=== PATIENT | female | born 1960 | race Caucasian/White ===

== ENCOUNTER 2021-05-15 17:09 | Emergency (ER) | payer OTHER ==
--- NOTE | 2021-05-15 17:12 | ERPHSYRPT ---
- History of Present Illness Time Seen by Provider: 05/15/21 17:11 Source: patient Exam Limitations: no limitations Physician History: This is an obese 60-year-old white female with a history of hypertension on 3 different medications for hypertension who presents with 4 to 5-day history of brief right eye visual change with ruptured blood vessel on the lateral aspect of her right eye. She took her medication today but was found to have an elevated systolic blood pressure of over 200 while at work. Patient works here at the hospital and they sent her to the emergency department for evaluation and management. Patient denies headache. She has no visual changes at this time. She has no chest pain. She is not short of breath. She has had no vomiting or nausea. Timing/Duration: day(s) (5) Severity: moderate Modifying Factors: Improves With: nothing Associated Symptoms: denies symptoms Allergies/Adverse Reactions: No Known Drug Allergies Allergy (Verified 05/15/21 17:21) Home Medications: No Home Meds 12/17/12 [History] Lisinopril 10 mg [Zestril 10 MG] 10 mg PO DAILY 05/15/21 [History] Losartan Potassium [Cozaar] 50 mg PO DAILY 05/15/21 [History] Metoprolol Tartrate 50 mg PO DAILY 05/15/21 [History] Hx Tetanus, Diphtheria Vaccination/Date Given: No Hx Influenza Vaccination/Date Given: No Travel Risk - International Travel Have you traveled outside of the country in past 3 weeks: No - Coronavirus Screening Are you exhibiting any of the following symptoms?: No Close contact with a COVID-19 positive Pt in past 14-21 Days: No - Review of Systems Constitutional: No Symptoms Eyes: Vision Changes (Brief on the weekend), Other (Ruptured vessel right thigh lateral aspect) Ears, Nose, & Throat: No Symptoms Respiratory: No Symptoms Cardiac: No Symptoms Abdominal/Gastrointestinal: No Symptoms Genitourinary Symptoms: No Symptoms Musculoskeletal: No Symptoms Skin: No Symptoms Neurological: No Symptoms Psychological: No Symptoms Endocrine: No Symptoms Hematologic/Lymphatic: No Symptoms Immunological/Allergic: No Symptoms All Other Systems: Reviewed and Negative - Past Medical History Pertinent Past Medical History: No - Past Surgical History Past Surgical History: Yes Gastrointestinal: Cholecystectomy - Social History Smoking Status: Never smoker Exposure to second hand smoke: No Drug Use: none 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) - Nursing Vital Signs Nursing Vital Signs: Initial Vital Signs Temperature 97.8 F 05/15/21 17:15 Pulse Rate 88 05/15/21 17:15 Respiratory Rate 20 05/15/21 17:15 Blood Pressure 218/99 05/15/21 17:15 O2 Sat by Pulse Oximetry 98 05/15/21 17:15 Pain Scale Pain Intensity 0 - Physical Exam General Appearance: no apparent distress, alert, anxiety, obese Eye Exam: PERRL/EOMI, other (Ruptured blood vessel lateral aspect right) Ears, Nose, Throat Exam: normal ENT inspection, moist mucous membranes Neck Exam: normal inspection, non-tender, supple, full range of motion Respiratory Exam: normal breath sounds, lungs clear, airway intact, No chest tenderness, No respiratory distress Cardiovascular Exam: regular rate/rhythm, normal heart sounds, normal peripheral pulses Gastrointestinal/Abdomen Exam: soft, normal bowel sounds, No tenderness Pelvic Exam: not done Rectal Exam: not done Back Exam: normal inspection, normal range of motion, No CVA tenderness, No vertebral tenderness Extremity Exam: normal inspection, normal range of motion, pelvis stable Neurologic Exam: alert, oriented x 3, cooperative, enrolled nurse II-XII nml as tested, normal mood/affect ( ruptured blood vessel lateral aspect right), nml cerebellar function, nml station & gait, sensation nml ( eye) Skin Exam: normal color, warm, dry Lymphatic Exam: No adenopathy SpO2 Interpretation: normal O2 Delivery: Room Air - Course Nursing assessment & vital signs reviewed: Yes Ordered Tests: Active Orders 24 hr Category Date Time Status Soft Drink Powder Mixer STAT Care 05/15/21 17:34 Active IV Insertion STAT Care 05/15/21 17:33 Active Pulse Oximetry (ED) STAT Care 05/15/21 17:33 Active HEAD WITHOUT CONTRAST [CT] Stat Exams 05/15/21 17:35 Taken CBC W DIFF Stat Lab 05/15/21 17:54 Completed CMP Stat Lab 05/15/21 17:54 Completed Medication Summary Discontinued Medications Generic Name Dose Route Start Last Admin Trade Name Freq PRN Reason Stop Dose Admin Enalaprilat 1.25 mg 05/15/21 17:33 05/15/21 17:43 Enalaprilat 2.5 Mg Injection IV 05/15/21 17:34 1.25 mg STAT ONE Administration Enalaprilat Confirm 05/15/21 17:42 Enalaprilat 2.5 Mg Injection Administered 05/15/21 17:43 Dose 2.5 mg IV .STK-MED ONE Metoprolol Tartrate 5 mg 05/15/21 17:33 05/15/21 17:43 Metoprolol Tartrate 5 Mg/5 Ml Injection IV 05/15/21 17:34 5 mg STAT ONE Administration Metoprolol Tartrate Confirm 05/15/21 17:42 Metoprolol Tartrate 5 Mg/5 Ml Injection Administered 05/15/21 17:43 Dose 5 mg IV .STK-MED ONE Lab/Rad Data: Laboratory Result Diagrams 05/15/21 17:54 05/15/21 17:54 Laboratory Results 05/15/21 05/15/21 Range/Units 17:54 17:54 WBC 8.1 (4.0-10.5) K/mm3 RBC 4.19 (4.1-5.4) M/mm3 Hgb 12.9 (12.0-16.0) gm/dl Hct 39.7 (35-47) % MCV 94.7 (78-100) fl MCH 30.8 (26-32) pg MCHC 32.5 (32-36) g/dl RDW 12.9 (11.5-14.0) % Plt Count 270 (150-450) K/mm3 MPV 10.0 (7.5-11.0) fl Gran % 62.2 (36.0-66.0) % Eos # (Auto) 0.16 (0-0.5) Absolute Lymphs (auto) 2.27 (1.0-4.6) Absolute Monos (auto) 0.58 (0.0-1.3) Lymphocytes % 28.2 (24.0-44.0) % Monocytes % 7.2 (0.0-12.0) % Eosinophils % 2.0 (0.00-5.0) % Basophils % 0.4 (0.0-0.4) % Absolute Granulocytes 5.01 (1.4-6.9) Basophils # 0.03 (0-0.4) Sodium 138 (137-145) mmol/L Potassium 3.8 (3.5-5.1) mmol/L Chloride 101 (98-107) mmol/L Carbon Dioxide 30 (22-30) mmol/L Anion Gap 10.6 (5-15) MEQ/L BUN 14 (7-17) mg/dL Creatinine 0.94 (0.52-1.04) mg/dL Estimated GFR > 60.0 ML/MIN Glucose 91 (74-106) mg/dL Calcium 9.5 (8.4-10.2) mg/dL Total Bilirubin 0.50 (0.2-1.3) mg/dL AST 30 (14-36) U/L ALT 18 (0-35) U/L Alkaline Phosphatase 108 (38-126) U/L Serum Total Protein 7.3 (6.3-8.2) g/dL Albumin 4.2 (3.5-5.0) g/dL - Progress Progress: improved, re-examined Progress Note: 05/15/21 18:39 CAT scan of the head without contrast is negative for acute intracranial abnormality. Counseled pt/family regarding: lab results, diagnosis, need for follow-up, rad results - Departure Departure Disposition: Home Clinical Impression: Hypertension Condition: Stable Critical Care Time: No [facility] - Additional Instructions: Take your blood pressure medication as prescribed. A 3 times a day, daily log of your blood pressure as discussed. Call your prescribing physician tomorrow morning, 05/16/2021, to make arrange for follow-up and further management of your high blood pressure as well as a referral to an felt strip finisher for further management.
[2021-05-15 17:21] VITALS: O2SAT 98
[2021-05-15] MEDS ORDERED: VASOTEC I.V. 2.5 MG IV ONE ×2 (17:33→17:42)
[2021-05-15] MEDS ORDERED: LOPRESSOR 5 MG/5 ML INJECTION IV ONE ×2 (17:33→17:42)
[2021-05-15 18:00] LABS: Absolute Neutrophil Ct (ANC) 5.01 (1.4-6.9); BASOPHIL % 0.4 % (0.0-0.4); Basophil (Absolute #) 0.03 (0-0.4); Eosinophil (Absolute #) 0.16 (0-0.5); Hematocrit 39.7 % (35-47); Hemoglobin 12.9 gm/dl (12.0-16.0); Lymphocyte (Absolute #) 2.27 (1.0-4.6); Lymphocytes % 28.2 % (24.0-44.0); Mean Cell Volume 94.7 fl (78-100); Mean Corpuscular Hemoglobin 30.8 pg (26-32); Mean Corpuscular Hgb Concent. 32.5 g/dl (32-36); Monocyte (Absolute #) 0.58 (0.0-1.3); Monocytes % 7.2 % (0.0-12.0); Neutrophil % 62.2 % (36.0-66.0); Platelet Count 270 K/mm3 (150-450); Red Blood Count 4.19 M/mm3 (4.1-5.4); Red Cell Distribution Width 12.9 % (11.5-14.0); White Blood Count 8.1 K/mm3 (4.0-10.5)
[2021-05-15 18:12] LABS: ALBUMIN 4.2 g/dL (3.5-5.0); ALKALINE PHOSPHATASE 108 U/L (38-126); ANION GAP 10.6 MEQ/L (5-15); BLOOD UREA NITROGEN 14 mg/dL (7-17); CHLORIDE 101 mmol/L (98-107); Calcium 9.5 mg/dL (8.4-10.2); Carbon Dioxide 30 mmol/L (22-30); Creatinine 1 0.94 mg/dL (0.52-1.04); EST GLOMERULAR FILTRATION RATE > 60.0 ML/MIN; Glucose 91 mg/dL (74-106); Potassium 3.8 mmol/L (3.5-5.1); SGOT/AST 30 U/L (14-36); SGPT/ALT 18 U/L (0-35); SODIUM 138 mmol/L (137-145); Total Protein 7.3 g/dL (6.3-8.2)
[2021-05-15 18:48] VITALS: BP 132/75; PULSE 80
--- NOTE | 2021-05-16 08:42 | XRAY ---
Indication: Visual changes. Hypertension. Right orbit blood vessel rupture. Multiple contiguous axial images obtained through the head without contrast. Comparison: None Age-appropriate global atrophy. No acute intracranial hemorrhage, abnormal extra-axial fluid collection, or mass effect. Fourth ventricle is midline without hydrocephalus. Huang-white matter differentiation preserved. Bony calvarium intact. Visualized paranasal sinuses and mastoid air cells are clear. Impression: Negative CT head without contrast exam.
== END 2021-05-15 18:49 | disposition home or self-care (01) ==
LOC: ED 17:09
DX: I10 Essential (primary) hypertension (principal)
CPT/HCPCS: 36000; 36415; 70450; 80053; 85025; 93041; 94760; 96374; 96375; 99284

== ENCOUNTER 2022-07-29 13:32 | Day surgery (SDC) | payer OTHER ==
[2022-07-29] MEDS ORDERED: Sodium Chloride 0.9(Preservative Free) 10 ML IJ ONE (13:33)
[2022-07-29] MEDS ORDERED: Depo-Medrol 40 MG/ML IM ONE (13:33)
[2022-07-29] MEDS ORDERED: DIPRIVAN 200 MG/20 ML IV ONE (16:21)
--- NOTE | 2022-07-29 16:51 | XRAY ---
Indication: Left L4-S1 transforaminal BOSSMAN. Intraoperative fluoroscopy provided for 22 seconds. 4 digital spot image submitted for interpretation demonstrates posterior needle tips projecting over the expected left L4 and L5 nerve roots. Small amount of contrast injected for needle tip placement. Correlate with intraoperative findings/report.
[2022-07-29] MEDS ORDERED: Lactated Ringers 1,000 ML IV ONE (17:07)
--- NOTE | 2022-07-29 20:57 | XRAY ---
22 seconds of fluoroscopy was used in surgery for a left L4-S1 transforaminal BOSSMAN.
== END 2022-07-29 16:43 | disposition home or self-care (01) ==
LOC: SDC-PAIN 13:32
PROVIDERS: ATTEND Psychiatry & Neurology Pain Medicine
DX: M54.16 Radiculopathy, lumbar region (principal); Z79.899 Other long term (current) drug therapy
CPT/HCPCS: 64483; 64484; 72100; 77003; J1030; J2704; Q9966

== ENCOUNTER 2022-12-23 13:23 | Day surgery (SDC) | payer OTHER ==
[2022-12-23] MEDS ORDERED: Decadron 4 MG INJ IV ONE (13:24)
[2022-12-23] MEDS ORDERED: LIDOCAINE HCL 1% 50 MG/5 ML VL PF IJ ONE (13:24)
[2022-12-23] MEDS ORDERED: BUPIVACAINE 0.5% VIAL IJ ONE (13:24)
[2022-12-23] MEDS ORDERED: Depo-Medrol 40 MG/ML IM ONE (13:24)
[2022-12-23] MEDS ORDERED: DIPRIVAN 200 MG/20 ML IV ONE (15:06)
[2022-12-23] MEDS ORDERED: Lactated Ringers 1,000 ML IV ONE (17:01)
--- NOTE | 2022-12-23 22:10 | XRAY ---
Indication: Left SI joint and left piriformis injection. Intraoperative fluoroscopy provided for 16 seconds. 3 digital spot image submitted for interpretation demonstrates posterior needle tip projecting over the left SI joint. Second needle tip projects over the left piriformis with small amount of contrast injected for needle tip placement. Correlate with intraoperative findings/report.
--- NOTE | 2022-12-24 10:21 | XRAY ---
16 seconds of fluoroscopy was used in surgery for a left sacroiliac joint and left piriformis injection.
== END 2022-12-23 15:50 | disposition home or self-care (01) ==
LOC: SDC-PAIN 13:23
PROVIDERS: ATTEND Psychiatry & Neurology Pain Medicine
DX: M46.1 Sacroiliitis, not elsewhere classified (principal); M79.18 Myalgia, other site; Z79.899 Other long term (current) drug therapy
CPT/HCPCS: 20552; 27096; 72170; 77002; J1030; J1100; J2001; J2704; Q9966; G0260

== ENCOUNTER 2023-01-20 06:45 | Day surgery (SDC) | payer OTHER ==
[2023-01-20] MEDS ORDERED: Depo-Medrol 40 MG/ML IM ONE (06:46)
[2023-01-20] MEDS ORDERED: Sodium Chloride 0.9(Preservative Free) 10 ML IJ ONE (06:46)
[2023-01-20] MEDS ORDERED: LIDOCAINE HCL 1% 50 MG/5 ML VL PF IJ ONE (06:46)
[2023-01-20] MEDS ORDERED: Decadron 4 MG INJ IV ONE (06:46)
[2023-01-20] MEDS ORDERED: DIPRIVAN 200 MG/20 ML IV ONE (08:33)
--- NOTE | 2023-01-20 10:41 | XRAY ---
Indication: Left piriformis injection Intraoperative fluoroscopy provided for 8 seconds. Single digital spot images submitted for interpretation demonstrates posterior needle tip projecting over the expected left piriformis muscle. Small amount of contrast injected for needle tip placement. Correlate with intraoperative findings/report.
--- NOTE | 2023-01-20 10:41 | XRAY ---
Indication: Left L4-S1 transforaminal BOSSMAN Intraoperative fluoroscopy provided for 24 seconds. 4 digital spot images submitted for interpretation demonstrates posterior needle tips projecting over the expected left L4 and L5 nerve roots. Small amount of contrast injected for needle tip placement. Correlate with intraoperative findings/report.
--- NOTE | 2023-01-20 11:05 | XRAY ---
8 seconds of fluoroscopy was used in surgery for a left piriformis injection.
--- NOTE | 2023-01-20 11:05 | XRAY ---
24 seconds of fluoroscopy was used in surgery for a left L4-S1 transforaminal BOSSMAN.
[2023-01-20] MEDS ORDERED: Lactated Ringers 1,000 ML IV ONE (13:32)
== END 2023-01-20 09:03 | disposition home or self-care (01) ==
LOC: SDC-PAIN 06:45
PROVIDERS: ATTEND Psychiatry & Neurology Pain Medicine
DX: M54.16 Radiculopathy, lumbar region (principal); M79.18 Myalgia, other site; Z79.899 Other long term (current) drug therapy
CPT/HCPCS: 20552; 64483; 64484; 72100; 72170; 77002; 77003; J1030; J1100; J2001; J2704; Q9966

== ENCOUNTER 2024-09-13 11:27 | Day surgery (SDC) | payer MEDICARE, OTHER ==
[2024-09-13] MEDS ORDERED: LIDOCAINE HCL 2% 100 MG/5 ML IJ ONE (11:28)
[2024-09-13] MEDS ORDERED: propofoL IV ONE (12:53)
--- NOTE | 2024-09-13 14:18 | XRAY ---
Indication: Left L5 nerve block. Intraoperative fluoroscopy provided for 23 seconds. 4 digital spot images submitted for interpretation demonstrates posterior needle tip project over expected left L5 nerve root. Small amount of contrast injected for needle tip placement. Correlate with intraoperative findings/report.
--- NOTE | 2024-09-13 14:57 | XRAY ---
23 seconds of fluoroscopy was used in surgery for a left selective nerve root block at L5 level.
== END 2024-09-13 13:32 | disposition home or self-care (01) ==
LOC: SDC-PAIN 11:27
PROVIDERS: ATTEND Psychiatry & Neurology Pain Medicine
DX: M54.16 Radiculopathy, lumbar region (principal)
CPT/HCPCS: 64483; 72100; 77002; J2704; Q9966